=== PATIENT | male | born 1960 | race African-American/Black ===

== ENCOUNTER 2017-01-02 10:45 | Emergency (ER) | payer MEDICAID ==
[~2017-01-02] VITALS: Ht 170.2 cm; Wt 80.0 kg
[2017-01-02] MEDS ORDERED: LISI2.5T47 PO (10:51)
[2017-01-02] MEDS ORDERED: KETOROLAC 30MG/ML VIAL IV STA (11:53)
[2017-01-02 13:16] LABS: BASOPHILS % 0.9 % (0.0-2.0); EOSINOPHILS % 4.8 % (0.0-5.0); HEMATOCRIT. 37.7 % (42.0-52.0); HEMOGLOBIN. 12.3 g/dL (14.0-18.0); LYMPHOCYTES % 23.1 % (20.0-50.0); MEAN CORPUSCULAR HEMOGLOBIN 27.7 pg (28.0-32.0); MEAN CORPUSCULAR VOLUME 85.1 fL (80.0-94.0); MEAN PLATELET VOLUME 9.8 fl (7.4-10.4); MONOCYTES % 9.1 % (2.0-8.0); NEUTROPHILS % 62.1 % (40.0-76.0); PLATELET 179 x1000/uL (130-400); RED BLOOD CELL COUNT 4.43 mill/uL (4.7-6.1); RED CELL DISTRIBUTION WIDTH 15.2 % (11.6-14.6)
[2017-01-02 13:22] LABS: *AMPHETAMINES SCREEN URINE NEGATIVE (NEGATIVE); *BARBITURATES SCREEN URINE NEGATIVE (NEGATIVE); *BENZODIAZEPINES SCREEN URINE NEGATIVE (NEGATIVE); *COCAINE SCREEN URINE NEGATIVE (NEGATIVE); CANNABINOID URINE SCREEN NEGATIVE (NEGATIVE); METHADONE URINE SCREEN NEGATIVE (NEGATIVE); OPIATES URINE SCREEN NEGATIVE (NEGATIVE); PHENCYCLIDINE URINE SCREEN NEGATIVE (NEGATIVE)
[2017-01-02 13:31] LABS: CARBON DIOXIDE 25 mEq/L (21-32); CHLORIDE 110 mEq/L (98-107)
[2017-01-02 16:12] VITALS: BP 133/87
[2017-01-04] MEDS ORDERED: PROT40 PO (10:11)
[2017-01-04] MEDS ORDERED: ISOS30TA6 PO (10:11)
[2017-01-04] MEDS ORDERED: ATOR80TA PO (10:11)
[2017-01-04] MEDS ORDERED: POTA10CA42 PO (10:11)
[2017-01-04] MEDS ORDERED: ASPI-1159 PO (10:11)
[2017-01-04] MEDS ORDERED: FURO-152 PO (10:11)
[2017-01-04] MEDS ORDERED: BENZ100C86 PO (11:20)
== END 2017-01-02 17:03 | disposition home or self-care (01) ==
LOC: ER 11:06
DX: I11.0 Hypertensive heart disease with heart failure (principal); I50.9 Heart failure, unspecified; J40 Bronchitis, not specified as acute or chronic
CPT/HCPCS: 36415; 71010; 80053; 80305; 83880; 85025; 93005; 96374; 99285; J1885; Z7610